=== PATIENT | male | born 1975 | race Caucasian/White ===

== ENCOUNTER → 2019-08-26 | Outpatient (CLI) | payer BC, OTHER ==
[~2019-08-26] MED LIST: FISH OIL 1,001000 M2 PO; FLEXERIL PO; FLONASE 0.05%50 MCG NASAL; MOBIC15 MG PO; PULMICORT FLE180 MCG IH; UNICOMPLEX M TA1 TA1 PO; VENTOLIN HFA 1818 GM INH; VOLTAREN GEL 1100 G2 TOP; ZANAFLEX4 MG PO; ZANTAC 150MG T150 MG PO; ZYRTEC10 MG PO
== END ==
LOC: ULTRA 13:31
PROVIDERS: ATTEND Internal Medicine
DX: E04.2 Nontoxic multinodular goiter (principal); E03.9 Hypothyroidism, unspecified; E04.9 Nontoxic goiter, unspecified